=== PATIENT | female | born 1965 | race African-American/Black ===

== ENCOUNTER → 2016-12-23 | Outpatient (CLI) | payer OTHER ==
--- NOTE | 2016-12-23 12:43 | DIAGNOSTIC IMAGING REPORT ---
CHEST 2 VIEWS ROUTINE CLINICAL HISTORY: CONJUNCTIVITIS, COUGH dyspnea COMPARISON STUDY: No previous studies for comparison. FINDINGS: Diffuse parenchymal infiltrate left lower lobe. Lungs otherwise appear clear. Diaphragms are smooth. There are no consolidative changes. IMPRESSION: Left lower lobe infiltrate Electronically signed by: Kushal Santoyo M.D. 12/23/2016 12:41 PM Dictated Date/Time: 12/23/2016 12:41 PM
== END | disposition home or self-care (01) ==
LOC: C.RAD1850 12:28
PROVIDERS: ATTEND Family Medicine
DX: R05 Cough (principal); H10.9 Unspecified conjunctivitis; R91.8 Other nonspecific abnormal finding of lung field

== ENCOUNTER → 2017-02-13 | Outpatient (CLI) | payer OTHER ==
--- NOTE | 2017-02-13 11:54 | DIAGNOSTIC IMAGING REPORT ---
CHEST 2 VIEWS ROUTINE CLINICAL HISTORY: J18.9 PNEUMONIA COMPARISON STUDY: 12/23/2016 FINDINGS: The cardiac and mediastinal contours are normal. There is no evidence of focal pulmonary consolidation. There is no evidence of failure. No pleural effusions are visualized.[ There is been resolution of the previously identified left basal airspace opacities. The study is slightly compromised due to the patient's large body habitus. IMPRESSION: No active disease in the chest. Electronically signed by: Mohsen Salazar M.D. 02/13/2017 11:53 AM Dictated Date/Time: 02/13/2017 11:52 AM
== END | disposition home or self-care (01) ==
LOC: C.RAD1850 11:42
PROVIDERS: ATTEND Nurse Practitioner Family
DX: J18.9 Pneumonia, unspecified organism (principal)

== ENCOUNTER → 2017-12-12 | Outpatient (CLI) | payer OTHER ==
--- NOTE | 2017-12-12 12:44 | DIAGNOSTIC IMAGING REPORT ---
SOFT TISSUE ULTRASOUND OF THE SUBMANDIBULAR REGION CLINICAL HISTORY: R22.0 palpable mass COMPARISON STUDY: No previous studies for comparison. FINDINGS: In the submental portion of the anterior neck, there are 2 lymph nodes visualized measuring 7 x 7 x 4 mm an 11 x 7 x 5 mm. IMPRESSION: The palpable abnormality corresponds to 2 non-pathologically enlarged submental lymph nodes. Clinical follow-up is advocated Electronically signed by: Mohsen Salazar M.D. 12/12/2017 12:42 PM Dictated Date/Time: 12/12/2017 12:41 PM
== END | disposition home or self-care (01) ==
LOC: C.ULTR 12:06
PROVIDERS: ATTEND Family Medicine
DX: R22.0 Localized swelling, mass and lump, head (principal)